=== PATIENT | female | born 1995 | race American Indian/Alaskan Native ===

== ENCOUNTER 2021-02-16 13:31 | Emergency (ER) | payer SELFPAY ==
[2021-02-16 13:35] VITALS: BP 126/50
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
== END 2021-02-16 14:15 | disposition home or self-care (01) ==
LOC: ED 13:31
DX: S80.11XA Contusion of right lower leg, initial encounter (principal); S76.011A Strain of muscle, fascia and tendon of right hip, initial encounter; S20.212A Contusion of left front wall of thorax, initial encounter; R51.9 Headache, unspecified; V89.2XXA Person injured in unspecified motor-vehicle accident, traffic, initial encounter; Y93.89 Activity, other specified; Y92.89 Other specified places as the place of occurrence of the external cause; Y99.8 Other external cause status
CPT/HCPCS: 99281